=== PATIENT | male | born 1965 | race Caucasian/White ===

== ENCOUNTER 2021-10-25 09:20 | Inpatient (IN) ==
--- NOTE | 2021-10-25 10:01 | XRay Report ---
INDICATION: sob TECHNIQUE: AP portable upright chest x-ray COMPARISON: Previous chest x-ray dated 10/21/2021 FINDINGS: Lungs:Bilateral pulmonary parenchymal infiltrates consistent with pneumonia. Findings are suggestive of covid pneumonia and correlation with lab tests is recommended. There has been significant interval worsening of bilateral infiltrates since 10/21/2021. Heart, vascular:No significant cardiomegaly. Pulmonary vascularity is normal. No pulmonary edema or pulmonary congestion Mediastinum, renea:No mediastinal widening. No hilar mass Pleura:No pleural fluid. No pleural-based mass or calcification Skeletal:Negative. IMPRESSION: 1. Bilateral pulmonary parenchymal infiltrates, worse than on 10/21/2021 2. Findings are consistent with covid pneumonia Interpreted and Authenticated by: Ted Morelos 10/25/21
[2021-10-25 10:09] LABS: Basophils # (Auto) 0.03 K/mcL (0.00-0.30); Basophils % (Auto) 0.3 % (0.0-2.0); Eosinophils # (Auto) 0 K/mcL (0.00-0.70); Eosinophils % (Auto) 0 % (0.0-7.0); Hematocrit 47.4 % (40.1-51.0); Hemoglobin 16.1 g/dL (13.7-17.5); Lymphocytes # (Auto) 0.63 K/mcL (1.50-4.80); Lymphocytes % (Auto) 6.2 % (15.5-49.0); Mean Cell Volume 85.6 fL (80.0-100.0); Mean Platelet Volume 9.8 fL (7.4-10.4); Monocytes # (Auto) 0.43 K/mcL (0.10-0.90); Monocytes % (Auto) 4.3 % (1.0-12.0); Neutrophils % (Auto) 89.2 % (38.0-78.0); Platelet Count 233 K/mcL (140-440); RBC 5.54 M/mcL (4.63-6.08); Red Cell Distribution Width 14.6 % (11.5-14.5); WBC 10.1 K/mcL (4.5-11.0)
[2021-10-25] MEDS ORDERED: REMDESIVIR 200 MG in 0.9 % SODIUM CHLORIDE 250 ML IV ONE (10:16)
--- NOTE | 2021-10-25 10:35 | Internal Med History&Physical ---
HPI History of Present Illness Patient information: Note initiated : 10/25/21 at 10:32 am Service Date, if different from initiated Date: [] Patient: Demarcus Koch a 56 y/o M admitted on for hypoxia. Chief Complaint: [] History of present illness: Mr. Koch is a 56 year old M morbidly obese unvaccinated for Covid with a history of diabetes/hypertension/[place] patient who presents to the ER with worsening shortness of breath along with weakness. Patient was recently diagnosed on with Covid and was discharged on home oxygen/steroids. His symptoms started roughly around 13 October. Symptoms during fever, chills, malaise, fatigue, nonproductive cough weakness and fatigue. He also has associated loss of appetite. Initial work-up in the ER was consistent with severe hypoxia respiratory failure/bilateral chest infiltrates consistent with Covid pneumonia. Patient was started on nonrebreather oxygen. Initial blood gas 7.4/ on 100 percent FiO2 nonrebreather. Patient was started on remdesivir. Subsequently hospitalist service consulted At the time of my evaluation patient is extremely anxious, labored. He was able to talk in near full sentences but visibly short of breath requiring high flow oxygen to maintain sats above 90. He was able to endorse to history as above. He has associated diarrhea. He has been taking his steroids/home oxygen however his sats has been dropping to as low as 60s. He otherwise denies changes in medication, photophobia, joint pain, rash, glandular swelling Review of systems 10 point review system was performed and is negative except for ones discussed above PFSH PFSH All Active Problems COVID-19 (Acute) MEDS/ALLERGIES Home Medications and Allergies Allergies Allergy/AdvReac Type Severity Reaction Status Date / Time No Known Drug Allergies Allergy Verified 10/25/21 09:22 EXAM Constitutional Vitals: Pulse Resp Pulse Ox 99 H 16 89 L 10/25/21 10:13 10/25/21 10:13 10/25/21 10:13 Morbidly obese, anxious Head normocephalic Oral cavity moist No ear or nose discharge Eye no subconjunctival pallor, movement symmetrical S1-S2 occasionally irregular, tachycardia Labored breathing unable to talk in full sentences, on 100% FiO2 nonrebreather transition to high flow 30 L Vapotherm at 100% Nondistended nontender abdomen Lower extremity no cyanosis clubbing no lymphedema Skin stasis changes lower extremity Psych anxious but no hallucination Neuro normal higher function on limited neuro exam DATA Data Completed and Pending Labs: Labs from last 24 hours 10/25/21 09:40 WBC 10.1 RBC 5.54 Hgb 16.1 Hct 47.4 MCV 85.6 MCH 29.1 MCHC 34.0 RDW 14.6 H Plt Count 233 MPV 9.8 Neut % (Auto) 89.2 H Lymph % (Auto) 6.2 L [place] % (Auto) 4.3 Eos % (Auto) 0 Baso % (Auto) 0.3 Lymph # (Auto) 0.63 L [place] # (Auto) 0.43 Eos # (Auto) 0 Baso # (Auto) 0.03 Absolute Neutrophils 9.02 H A/P Narrative A/P Narrative: * COVID-19 pneumonia-PCU admission/initiate remdesivir/dexamethasone, Actemra if patient consents. Thrombosis prophylaxis/initial inflammatory markers, maintain COVID-19 precautions. * Acute hypoxic respiratory failure secondary to Covid pneumonia. Continue with high flow oxygen/pulmonary toilet/ Prone ventilation and transition to noninvasive mechanical ventilation if worsening oxygenation on ABG/interval chest imaging. ABG 7.4//56 on 100% nonrebreather * Acute lung injury, PF less than 100, high risk mortality. Initiate gentle diuresis for alveolar recruitment. Very high risk of progression to fibroproliferative phase/ARDS * DM type II-continue basal panel insulin/CC diet * History of hypertension hold antihypertensives until systolics over 140 * Orbit obesity. Very high risk mortality. Patient made aware Plan * Inpatient PCU admission, patient made aware of very high risk mortality * Continue high flow/NIV if indicated * Prone ventilation * Obtain medication list from pharmacy * Serial imaging/ABG * Remdesivir/dexamethasone/empiric antibiotics/Actemra if patient consents * Nutrition support/early mobilization Time Spent With Patient Time: Critical care time spent in excess of 100 minutes on management of respiratoryfailure/COVID-19 pneumonia Total time spent with greater than 50% in coordination of care (as documented) at patient's floor/unit and/or counseling patient:: Greater than 35 minutes
--- NOTE | 2021-10-25 10:59 | Emergency Department Note ---
HPI General Chief complaint: Shortness of Breath/Dyspnea Stated complaint: hypoxia Time Seen by Provider: 10/25/21 09:21 Source: patient Mode of arrival: ambulatory Limitations: no limitations History of Present Illness HPI Narrative: Narrative: Presents emergency department for increased difficulty breathing. He is about 7 days symptomatic with COVID-19. Complains of increased shortness of breath had a low oxygen saturation at home today in the 60s. Was seen in the emergency department recently for the same declined admission was discharged home on oxygen. Has been taking Decadron. Has a little chest discomfort with coughing but otherwise denies chest pain. No other complaints. Unvaccinated Related Data Allergies Allergy/AdvReac Type Severity Reaction Status Date / Time No Known Drug Allergies Allergy Verified 10/25/21 11:58 Review of Systems ROS ROS Narrative: Narrative: As above, all other system reviewed and negative. PFSH Narrative Patient History Narrative: Narrative: Reviewed Medical/Surgical/Family History All Active Problems (Updated 10/25/21 @ 13:32 by Tyrese Olvera MD) COVID-19 (Acute) Social History Smoking Status: Smokeless tobacco Exam Narrative Narrative: Narrative: Hypoxic on arrival to the emergency department General Limitations: no limitations General appearance: Present alert Head Head: Present atraumatic, normocephalic and normal inspection Eye Eye: Present normal appearance, PERRL and EOMI ENT ENT: Present normal exam Neck Neck: Present normal inspection and full ROM Respiratory Respiratory: Present other (Hypoxic but does not appear in respiratory dis tress.) Neurological Neurological: Present alert and CN II-XII intact; Absent motor sensory deficit Psychiatric Psychiatric: Present normal affect and normal mood Skin Skin: Present warm (WNL) and dry Course Vital Signs Vital signs: Vital Signs Pulse Rate 102 H 10/25/21 09:20 Respiratory Rate 25 H 10/25/21 09:20 Pulse Oximetry (%) 56 L 10/25/21 09:20 Temperature 97.5 F 10/25/21 12:01 Pulse Rate 91 H 10/25/21 12:01 Respiratory Rate 14 10/25/21 12:01 Blood Pressure 128/78 10/25/21 12:01 Pulse Oximetry (%) 91 10/25/21 12:01 [facility] MDM Narrative Medical decision making narrative: Narrative: Chest x-ray is consistent with Covid. Patient is placed on BiPAP initially and then transitioned to high flow oxygen and did improve with this and on reexam reports symptomatic improvement and is sitting upright and texting on his cell phone. I spoke with Dr. Wiggins on-call hospitalist. Case reviewed in detail over phone. Hospitalist agreed with admission. Discussed findings with the patient. His questions were answered. He is agreeable with plan. Lab Data Result diagrams: 10/25/21 09:40 10/25/21 13:11 Labs: Lab Results 10/25/21 10/25/21 10/25/21 Range/Units 09:40 09:40 09:40 WBC 10.1 (4.5-11.0) K/mcL RBC 5.54 (4.63-6.08) M/mcL Hgb 16.1 (13.7-17.5) g/dL Hct 47.4 (40.1-51.0) % MCV 85.6 (80.0-100.0) fL MCH 29.1 (26.0-34.0) pg MCHC 34.0 (31.0-36.0) g/dL RDW 14.6 H (11.5-14.5) % Plt Count 233 (140-440) K/mcL MPV 9.8 (7.4-10.4) fL Neut % (Auto) 89.2 H (38.0-78.0) % Lymph % (Auto) 6.2 L (15.5-49.0) % [place] % (Auto) 4.3 (1.0-12.0) % Eos % (Auto) 0 (0.0-7.0) % Baso % (Auto) 0.3 (0.0-2.0) % Lymph # (Auto) 0.63 L (1.50-4.80) K/mcL [place] # (Auto) 0.43 (0.10-0.90) K/mcL Eos # (Auto) 0 (0.00-0.70) K/mcL Baso # (Auto) 0.03 (0.00-0.30) K/mcL Absolute Neutrophils 9.02 H (1.80-8.00) K/mcL Ferritin 1678.0 H (30.0-400.0) ng/mL Procalcitonin 0.16 H (<0.10) ng/mL Discharge Plan Patient/Caregiver Discharge Instructions Pt seen by ADOBE ARCHITECT/PA only: No Clinical Impression: COVID-19 Patient Disposition: Xfer As Inpt ([facility]) Discharge Date/Time: 10/25/21 11:34
[2021-10-25] MEDS ORDERED: ONDANSETRON 4 MG/2 ML VIAL IV PRN (12:08)
[2021-10-25] MEDS ORDERED: ALBUTEROL SULFATE 200 PUFF INHALER INH PRN (12:08)
[2021-10-25] MEDS ORDERED: BISACODYL 10 MG SUPP.RECT PR PRN (12:08)
[2021-10-25] MEDS ORDERED: POLYETHYLENE GLYCOL 3350 17 GM PACKET PO PRN (12:08)
[2021-10-25] MEDS ORDERED: ACETAMINOPHEN 325 MG TABLET PO PRN (12:08)
[2021-10-25] MEDS ORDERED: POTASSIUM CHLORIDE 20 MEQ PACKET PO PRN (12:08)
[2021-10-25] MEDS ORDERED: hydrALAZINE 20 MG/ML VIAL IV PRN (12:08)
[2021-10-25] MEDS ORDERED: ONDANSETRON 4 MG ODT TABLET SL PRN (12:08)
[2021-10-25] MEDS ORDERED: MAGNESIUM SULFATE 2 GM/50 ML BAG IV PRN (12:08)
[2021-10-25] MEDS ORDERED: MELATONIN 3 MG TABLET PO PRN (12:08)
[2021-10-25] MEDS: guaiFENesin/CODEINE 10 ML UDC PO PRN (12:40)
[2021-10-25] MEDS: FUROSEMIDE 20 MG/2 ML VIAL IV SCH ×2 (12:40→16:47)
[2021-10-25] MEDS: cefTRIAXone 2 GM in DEXTROSE 5% IN WATER 50 ML IV SCH (12:41)
[2021-10-25] MEDS: AZITHROMYCIN 500 MG in DEXTROSE 5% IN WATER 250 ML IV SCH (12:41)
--- NOTE | 2021-10-25 13:11 | Internal Med Progress Note ---
SUBJECTIVE Subjective Patient information: Note initiated : 10/25/21 at 1:07 pm Service Date, if different from initiated Date: [] Patient: Demarcus Koch a 56 y/o M admitted on 10/25/21 for hypoxia. Chief Complaint: [] Interval history: History of present illness: Mr. Koch is a 56 year old M morbidly obese unvaccinated for Covid with a history of diabetes/hypertension/[facility] patient who presents to the ER with worsening shortness of breath along with weakness. Patient was recently diagnosed on with Covid and was discharged on home oxygen/steroids. His symptoms started roughly around 13 October. Symptoms during fever, chills, malaise, fatigue, nonproductive cough weakness and fatigue. He also has associated loss of appetite. Initial work-up in the ER was consistent with severe hypoxia respiratory failure/bilateral chest infiltrates consistent with Covid pneumonia. Patient was started on nonrebreather oxygen. Initial blood gas 7.4/ on 100 percent FiO2 nonrebreather. Patient was started on remdesivir. Subsequently hospitalist service consulted At the time of my evaluation patient is extremely anxious, labored. He was able to talk in near full sentences but visibly short of breath requiring high flow oxygen to maintain sats above 90. He was able to endorse to history as above. He has associated diarrhea. He has been taking his steroids/home oxygen however his sats has been dropping to as low as 60s. He otherwise denies changes in medication, photophobia, joint pain, rash, glandular swelling 10/26 Constitutional Vitals: Vital Signs Temp Pulse Resp BP Pulse Ox 97.5 F 91 H 14 128/78 91 10/25/21 12:01 10/25/21 12:01 10/25/21 12:01 10/25/21 12:01 10/25/21 12:01 Period Temp Pulse Resp BP Sys/Saez Pulse Ox Last 24 Hr 97.5 F-99.7 F 79-102 13-29 112-146/58-80 56-95 Intake and Output 10/24/21 10/25/21 10/25/21 21:59 05:59 13:59 Intake Total 250 Balance 250 Weight 156.489 kg Patient Weight 10/26/21 05:59 Weight 156.489 kg Intake & Output: Intake & Output 10/24/21 10/25/2121 21:59 05:59 13:59 Intake Total 250 Balance 250 Weight 156.489 kg Intake: IV 250 Veklury 200 mg In Sodium 250 Chloride 0.9% 250 ml @ 500 mls/ hr IV ONCE ONE Rx#:[id number] Exam: General: Alert, Awake, No acute Distress, obese Eyes/N/T: EOMI, Head/Neck: neck supple, CV: RRR, No murmurs, Pulm: Abd: soft, nontender, +BS x4 Ext: no clubbing/cyanosis/edema Neuro: Alert, no focal deficits, moves all extremities, Skin: warm/dry OBJ DATA Labs CBC & Chem 7: 10/25/21 09:40 10/25/21 13:11 Labs: Abnormal Lab Results 10/25/21 10/25/21 10/25/21 09:40 09:40 09:40 RDW 14.6 H Neut % (Auto) 89.2 H Lymph % (Auto) 6.2 L Lymph # (Auto) 0.63 L Absolute Neutrophils 9.02 H Ferritin 1678.0 H Procalcitonin 0.16 H Meds: Medications Acetaminophen (Acetaminophen 325 Mg Tablet) 650 mg PO Q4-6HP PRN; Protocol PRN Reason: Per Pain Protocol/Fever > 101 Albuterol Sulfate (Albuterol Sulfate 200 Puff Inhaler) 1 - 2 puff INH Q4HP PRN PRN Reason: Shortness Of Breath Bisacodyl (Bisacodyl 10 Mg Supp.Rect) 10 mg TX Q2-3DAYS PRN PRN Reason: Constipation Docusate Sodium (Docusate Sodium 100 Mg Capsule) 100 mg PO BID [facility] Enoxaparin Sodium (Enoxaparin 30 Mg/0.3 Ml Syringe) 30 mg SQ BID [facility]ENN[facility] Furosemide (Furosemide 20 Mg/2 Ml Vial) 20 mg IV BIDD JENN[facility]ER Last Admin: 10/25/21 12:40 Dose: 20 mg Documented by: Guaifenesin/Codeine Phosphate (Guaifenesin/Codeine 10 Ml Udc) 10 ml PO Q4HP PRN PRN Reason: Cough Last Admin: 10/25/21 12:40 Dose: 10 ml Documented by: Hydralazine HCl (Hydralazine 20 Mg/Ml Vial) 10 mg IV Q4-6HP PRN PRN Reason: Hypertension Azithromycin 500 mg/ Dextrose 250 mls @ 250 mls/hr IV Q24H [facility]; Protocol Stop: 10/27/21 13:59 Last Admin: 10/25/21 12:41 Dose: 250 mls/hr Documented by: REMDESIVIR 100 mg/ Sodium (Chloride) 250 mls @ 500 mls/hr IV Q24H [facility] Stop: 10/29/21 10:29 Acetaminophen (Ofirmev) 650 mg in 65 mls @ 130 mls/hr IV Q6HP PRN; Protocol PRN Reason: Per Pain Protocol/Fever > 101 Magnesium Sulfate (Magnesium Sulfate) 2 gm in 50 mls @ 50 mls/hr IV UD PRN PRN Reason: MG = or < 1.7 Ceftriaxone Sodium 2 gm/ (Dextrose) 50 mls @ 100 mls/hr IV Q24H [facility]; Protocol Last Admin: 10/25/21 12:41 Dose: 100 mls/hr Documented by: Iron Carb/Multivit/[place]/Folic Acid (Multivit,Ther Iron,Ca,Fa & Min 1 Tablet) 1 tab PO DAILY [facility] Melatonin (Melatonin 3 Mg Tablet) 3 mg PO HSP PRN PRN Reason: Insomnia Ondansetron HCl (Ondansetron 4 Mg Odt Tablet) 4 mg SL Q4-6HP PRN; Protocol PRN Reason: Nausea And Vomiting Ondansetron HCl (Ondansetron 4 Mg/2 Ml Vial) 4 mg IV Q4-6HP PRN; Protocol PRN Reason: Nausea And Vomiting Polyethylene Glycol (Polyethylene Glycol 3350 17 Gm Packet) 17 gm PO DAILYP PRN PRN Reason: Constipation Potassium Chloride (Potassium Chloride 20 Meq Packet) 40 meq PO DAILYP PRN PRN Reason: K+ < 3.5 Senna/Docusate Sodium (Sennosides/Docusate Sodium 1 Tab Tablet) 1 tab PO HS [facility]ENN[facility] Sodium Chloride (0.9 % Sodium Chloride 10 Ml Syringe) 10 ml IV Q8 [facility]ENN[facility]ER A/P Narrative A/P Narrative: A: *COVID-19 pneumonia w/ARDS: *Acute hypoxic respiratory failure: *DM type II: *HTN: *GERD: *Morbid obesity: Very high risk mortality. Plan: -patient made aware of very high risk mortality -Remdesivir/dexamethasone/empiric antibiotics, Actemra -Continue high flow/NIV if indicated -Proning/mobilization/oob to chair -IS/Acapella/RT -IV lasix -continue basal and SSI -Serial imaging/ABG -cont norvasc/ACEI/BB -Nutrition support/early mobilization -ppx: lovenox / home ppi full code Time Spent With Patient Time: Total time spent is greater than 50% in coordination of care (as documented) at patient's floor/unit and/or counseling patient:
[2021-10-25] MEDS ORDERED: TOCILIZUMAB 800 MG in 0.9 % SODIUM CHLORIDE 60 ML IV ONE (13:30)
[2021-10-25 14:29] LABS: ALT/SGPT 34 U/L (<40); AST/SGOT 44 U/L (<40); Albumin 3.4 gm/dL (3.2-5.2); Albumin/Globulin Ratio 0.9 (1.0-2.3); Alkaline Phosphatase 103 U/L (39-117); Bilirubin,Direct < 0.2 mg/dL (0-0.3); Bilirubin,Total 0.3 mg/dL (0.1-1.0); Blood Urea Nitrogen 28 mg/dL (6-20); Carbon Dioxide 20 mmol/L (22-30); Chloride 98 mmol/L (96-108); Globulin 3.6 gm/dL (2.2-3.7); Glomerular Filtration Rate 95; Glucose 194 mg/dL (70-105); Lactate Dehydrogenase 602 U/L (135-225); Phosphorous 3.4 mg/dL (2.5-4.5); Triglycerides 193 mg/dL (<150); Uric Acid 6.1 mg/dL (2.5-8.0)
[2021-10-25] MEDS: 0.9 % SODIUM CHLORIDE 10 ML SYRINGE IV SCH ×2 (14:51→20:15)
[2021-10-25] MEDS ORDERED: DEXTROSE 50% 50 ML VIAL IV PRN (17:31)
[2021-10-25] MEDS ORDERED: DEXTROSE 31 GM ORAL.SUSP PO PRN (17:31)
[2021-10-25] MEDS ORDERED: NICOTINE POLACRILEX 2 MG GUM CHEW/PARK PRN (17:42)
[2021-10-25] MEDS: DOCUSATE SODIUM 100 MG CAPSULE PO SCH (20:09)
[2021-10-25] MEDS: SENNOSIDES/DOCUSATE SODIUM 1 TAB TABLET PO SCH (20:09)
[2021-10-25] MEDS: INSULIN LISPRO 1 UNIT/0.01 ML UNIT SQ SCH (20:14)
[2021-10-25] MEDS: ATORVASTATIN 40 MG TABLET PO SCH (20:15)
[2021-10-25] MEDS: METOPROLOL TARTRATE 50 MG TABLET PO SCH (20:15)
[2021-10-25] MEDS: ENOXAPARIN 30 MG/0.3 ML SYRINGE SQ SCH (20:15)
[2021-10-26] MEDS: guaiFENesin/CODEINE 10 ML UDC PO PRN ×4 (02:12→21:37)
[2021-10-26] MEDS: 0.9 % SODIUM CHLORIDE 10 ML SYRINGE IV SCH ×3 (05:37→21:51)
[2021-10-26] MEDS: OMEPRAZOLE 20 MG CAPSULE PO SCH (07:09)
--- NOTE | 2021-10-26 07:28 | Internal Med Progress Note ---
SUBJECTIVE Subjective Patient information: Note initiated : 10/26/21 at 7:28 am Service Date, if different from initiated Date: [] Patient: Demarcus Koch 56 y/o M admitted on 10/25/21 for hypoxia. Chief Complaint: [] Interval history: History of present illness: Mr. Koch is a 56 year old M morbidly obese unvaccinated for Covid with a history of diabetes/hypertension/[facility] patient who presents to the ER with worsening shortness of breath along with weakness. Patient was recently diagnosed on with Covid and was discharged on home oxygen/steroids. His symptoms started roughly around 13 October. Symptoms during fever, chills, malaise, fatigue, nonproductive cough weakness and fatigue. He also has associated loss of appetite. Initial work-up in the ER was consistent with severe hypoxia respiratory failure/bilateral chest infiltrates consistent with Covid pneumonia. Patient was started on nonrebreather oxygen. Initial blood gas 7.4/ on 100 percent FiO2 nonrebreather. Patient was started on remdesivir. Subsequently hospitalist service consulted At the time of my evaluation patient is extremely anxious, labored. He was able to talk in near full sentences but visibly short of breath requiring high flow oxygen to maintain sats above 90. He was able to endorse to history as above. He has associated diarrhea. He has been taking his steroids/home oxygen however his sats has been dropping to as low as 60s. He otherwise denies changes in medication, photophobia, joint pain, rash, glandular swelling 10/26 Patient not vaccinated. Patient feels he may be breathing a little better than yesterday. States he slept all right. Currently on CPAP at 100% FiO2 with sats low 90s. Dry cough. Review of Systems: denies headache/fever/chills/nausea/vomiting/chest or abdominal pain/diarrhea. Otherwise see above. Constitutional Vitals: Vital Signs Temp Pulse Resp BP Pulse Ox 96.5 F L 70 25 H 108/75 91 10/26/21 04:00 10/26/21 05:35 10/26/21 05:35 10/26/21 04:00 10/26/21 05:35 Period Temp Pulse Resp BP Sys/Saez Pulse Ox Last 24 Hr 96.5 F-99.7 F 59-102 8-32 99-146/41-81 56-99 Intake and Output 10/25/21 10/26/21 10/26/21 21:59 05:59 13:59 Intake Total 1920 1080 Output Total 3500 1450 Balance -1580 -370 Weight 142.11 kg Intake & Output: Intake & Output 10/25/21 10/26/21 10/26/21 21:59 05:59 13:59 Intake Total 1920 1080 Output Total 3500 1450 Balance -1580 -370 Weight 142.11 kg Intake: IV 400 Zithromax 500 mg In Dextrose 5% 250 in Water 250 ml @ 250 mls/hr IV Q24H [facility] Rx#:[id number] Actemra 800 mg In Sodium 100 Chloride 0.9% 60 ml @ 100 mls/ hr IV ONCE ONE Rx#:[id number] Rocephin 2 gm In Dextrose 5% in 50 Water 50 ml @ 100 mls/hr IV Q24H [facility] Rx#:[id number] Oral 1520 1080 Output: Void Amount 3500 1450 Other: Meal Dinner Percent of Meal Consumed 50% Feeding Ability Independent Urine Appearance Clear Clear Urine Color Bright Yellow Bright Yellow Urine Odor Normal Stool Size Small Stool Color Brown Stool Consistency Liquid # Bowel Movements 1 Exam: General: Alert, Awake, No acute Distress, obese Eyes/N/T: EOMI, Head/Neck: neck supple, CV: RRR, No murmurs, Pulm: Diminished and fine rales b/l, no wheezing Abd: soft, nontender, +BS x4 Ext: no clubbing/cyanosis, Neuro: Alert, no focal deficits, moves all extremities, Skin: warm/dry OBJ DATA Labs CBC & Chem 7: 10/25/21 09:40 10/25/21 13:11 Labs: Abnormal Lab Results 10/25/21 10/25/21 10/25/21 13:11 13:11 09:40 RDW Neut % (Auto) Lymph % (Auto) Lymph # (Auto) Absolute Neutrophils D-Dimer 1.25 H Carbon Dioxide 20 L BUN 28 H Glucose 194 H Magnesium 2.7 H Ferritin GGT 103 H AST 44 H Lactate Dehydrogenase 602 H C-Reactive Protein 6.50 H Albumin/Globulin Ratio 0.9 L Triglycerides 193 H Procalcitonin 0.16 H 10/25/21 10/25/21 09:40 09:40 RDW 14.6 H Neut % (Auto) 89.2 H Lymph % (Auto) 6.2 L Lymph # (Auto) 0.63 L Absolute Neutrophils 9.02 H D-Dimer Carbon Dioxide BUN Glucose Magnesium Ferritin 1678.0 H GGT AST Lactate Dehydrogenase C-Reactive Protein Albumin/Globulin Ratio Triglycerides Procalcitonin Meds: Medications Acetaminophen (Acetaminophen 325 Mg Tablet) 650 mg PO Q4-6HP PRN; Protocol PRN Reason: Per Pain Protocol/Fever > 101 Albuterol Sulfate (Albuterol Sulfate 200 Puff Inhaler) 1 - 2 puff INH Q4HP PRN PRN Reason: Shortness Of Breath Albuterol/Ipratropium (Ipratropium/Albuterol 3 Ml Ampul.Neb) 3 ml NEB Q4HP PRN PRN Reason: Shortness Of Breath Amlodipine Besylate (Amlodipine 10 Mg Tablet) 10 mg PO DAILY [facility] Aspirin (Aspirin 81 Mg Tab.Chew) 81 mg PO DAILY [facility] Atorvastatin Calcium (Atorvastatin 40 Mg Tablet) 40 mg PO HS [facility] Last Admin: 10/25/21 20:15 Dose: 40 mg Documented by: Bisacodyl (Bisacodyl 10 Mg Supp.Rect) 10 mg MS Q2-3DAYS PRN PRN Reason: Constipation Dextrose (Dextrose 50% 50 Ml Vial) 0 ml IV UD PRN PRN Reason: Hypoglycemia Diagnostic Test (Pha) (Accu-Chek 1 Each Strip) 1 each FS ACHS [facility] Last Admin: 10/25/21 20:14 Dose: 1 each Documented by: Docusate Sodium (Docusate Sodium 100 Mg Capsule) 100 mg PO BID [facility] Last Admin: 10/25/21 20:09 Dose: Not Given Documented by: Enoxaparin Sodium (Enoxaparin 30 Mg/0.3 Ml Syringe) 30 mg SQ BID [facility] Last Admin: 10/25/21 20:15 Dose: 30 mg Documented by: Furosemide (Furosemide 20 Mg/2 Ml Vial) 20 mg IV BIDD [facility] Last Admin: 10/25/21 16:47 Dose: 20 mg Documented by: Glucose (Dextrose 31 Gm Oral.Susp) 15 gm PO PRN PRN PRN Reason: Hypoglycemia Guaifenesin/Codeine Phosphate (Guaifenesin/Codeine 10 Ml Udc) 10 ml PO Q4HP PRN PRN Reason: Cough Last Admin: 10/26/21 02:12 Dose: 10 ml Documented by: Hydralazine HCl (Hydralazine 20 Mg/Ml Vial) 10 mg IV Q4-6HP PRN PRN Reason: Hypertension Azithromycin 500 mg/ Dextrose 250 mls @ 250 mls/hr IV Q24H [facility]; Protocol Stop: 10/27/21 13:59 Last Infusion: 10/25/21 15:07 Dose: Infused Documented by: REMDESIVIR 100 mg/ Sodium (Chloride) 250 mls @ 500 mls/hr IV Q24H [facility] Stop: 10/29/21 10:29 Acetaminophen (Ofirmev) 650 mg in 65 mls @ 130 mls/hr IV Q6HP PRN; Protocol PRN Reason: Per Pain Protocol/Fever > 101 Magnesium Sulfate (Magnesium Sulfate) 2 gm in 50 mls @ 50 mls/hr IV UD PRN PRN Reason: MG = or < 1.7 Ceftriaxone Sodium 2 gm/ (Dextrose) 50 mls @ 100 mls/hr IV Q24H [facility]; Protocol Last Infusion: 10/25/21 15:07 Dose: Infused Documented by: Insulin Glargine (Insulin Glargine, Human 1 Unit/0.01 Ml) 60 unit SQ DAILY [facility] Insulin Human Lispro (Insulin Lispro 1 Unit/0.01 Ml Unit) 0 unit SQ ACHS [facility]; Protocol Last Admin: 10/25/21 20:14 Dose: 8 unit Documented by: Iron Carb/Multivit/Sammy [place]/Folic Acid (Multivit,Ther Iron,Ca,Fa & Min 1 Tablet) 1 tab PO DAILY [facility] Lisinopril (Lisinopril 20 Mg Tablet) 40 mg PO DAILY [facility] Melatonin (Melatonin 3 Mg Tablet) 3 mg PO HSP PRN PRN Reason: Insomnia Metoprolol Tartrate (Metoprolol Tartrate 50 Mg Tablet) 100 mg PO BID [facility] Last Admin: 10/25/21 20:15 Dose: 100 mg Documented by: Nicotine Polacrilex (Nicotine Polacrilex 2 Mg Gum) 4 mg CHEW/PARK Q1-2HP PRN PRN Reason: Smoking Cessation Omeprazole (Omeprazole 20 Mg Capsule) 40 mg PO ACB [facility] Last Admin: 10/26/21 07:09 Dose: 40 mg Documented by: Ondansetron HCl (Ondansetron 4 Mg Odt Tablet) 4 mg SL Q4-6HP PRN; Protocol PRN Reason: Nausea And Vomiting Ondansetron HCl (Ondansetron 4 Mg/2 Ml Vial) 4 mg IV Q4-6HP PRN; Protocol PRN Reason: Nausea And Vomiting Empagliflozin [ (Jardiance] 25 Mg Tab) 1 dose PO DAILY [facility] Polyethylene Glycol (Polyethylene Glycol 3350 17 Gm Packet) 17 gm PO DAILYP PRN PRN Reason: Constipation Potassium Chloride (Potassium Chloride 20 Meq Packet) 40 meq PO DAILYP PRN PRN Reason: K+ < 3.5 Senna/Docusate Sodium (Sennosides/Docusate Sodium 1 Tab Tablet) 1 tab PO HS [facility] Last Admin: 10/25/21 20:09 Dose: Not Given Documented by: Sodium Chloride (0.9 % Sodium Chloride 10 Ml Syringe) 10 ml IV Q8 [facility] Last Admin: 10/26/21 05:37 Dose: 10 ml Documented by: A/P Narrative A/P Narrative: A: *COVID-19 pneumonia w/ARDS: *Acute hypoxic respiratory failure: -on cpap fio2 90-100% *DM type II: *HTN: *GERD: *Morbid obesity: Very high risk mortality Plan: -patient made aware of very high risk mortality -Remdesivir/dexamethasone/empiric antibiotics, s/p Actemra -Continue cpap, wean as able -Proning/mobilization/oob to chair -IS/Acapella/RT -IV lasix -continue basal and SSI -cont ACEI, hold norvasc/BB for low normal BP and mild bradycardia -Nutrition support/early mobilization -ppx: lovenox / home ppi full code Time Spent With Patient Time: Total time spent is greater than 50% in coordination of care (as documented) at patient's floor/unit and/or counseling patient: QUALITY VTE Deep Vein Thrombosis/Pulmonary Embolism Present on Admission: No
[2021-10-26] MEDS: INSULIN LISPRO 1 UNIT/0.01 ML UNIT SQ SCH ×4 (07:36→21:49)
[2021-10-26] MEDS: cefTRIAXone 2 GM in DEXTROSE 5% IN WATER 50 ML IV SCH (08:11)
[2021-10-26] MEDS: LORazepam 2 MG/ML VIAL IV PRN ×3 (08:11→23:29)
[2021-10-26] MEDS: FUROSEMIDE 20 MG/2 ML VIAL IV SCH ×2 (08:11→16:07)
[2021-10-26] MEDS: ACETAMINOPHEN 650 MG/65 ML BAG IV PRN ×3 (08:14→23:30)
[2021-10-26] MEDS ORDERED: LIDOCAINE 2% URO-JET 5 ML JEL.PF.APP UR ONE (08:15)
[2021-10-26] MEDS ORDERED: LISINOPRIL 20 MG TABLET PO SCH (09:00)
[2021-10-26] MEDS ORDERED: amLODIPine 10 MG TABLET PO SCH (09:00)
[2021-10-26] MEDS: AZITHROMYCIN 500 MG in DEXTROSE 5% IN WATER 250 ML IV SCH (09:47)
[2021-10-26] MEDS: MULTIVIT,THER IRON,CA,FA & MIN 1 TABLET PO SCH (09:48)
[2021-10-26] MEDS: ENOXAPARIN 30 MG/0.3 ML SYRINGE SQ SCH ×2 (09:48→21:36)
[2021-10-26] MEDS: DOCUSATE SODIUM 100 MG CAPSULE PO SCH ×2 (09:48→21:34)
[2021-10-26] MEDS: INSULIN GLARGINE, HUMAN 1 UNIT/0.01 ML SQ SCH (09:48)
[2021-10-26] MEDS: ASPIRIN 81 MG TAB.CHEW PO SCH (09:48)
[2021-10-26] MEDS: LIDOCAINE PATCH TOPICAL SCH (10:00)
[2021-10-26] MEDS: METOPROLOL TARTRATE 50 MG TABLET PO SCH (11:27)
[2021-10-26 12:03] LABS: Basophils # (Auto) 0.09 K/mcL (0.00-0.30); Eosinophils # (Auto) 0.22 K/mcL (0.00-0.70); Eosinophils % (Auto) 2.5 % (0.0-7.0); Hematocrit 49.1 % (40.1-51.0); Hemoglobin 16.1 g/dL (13.7-17.5); Lymphocytes # (Auto) 0.95 K/mcL (1.50-4.80); Lymphocytes % (Auto) 10.9 % (15.5-49.0); Mean Cell Volume 88.5 fL (80.0-100.0); Mean Corpuscular HGB Conc 32.8 g/dL (31.0-36.0); Mean Platelet Volume 10.9 fL (7.4-10.4); Monocytes # (Auto) 0.41 K/mcL (0.10-0.90); Monocytes % (Auto) 4.7 % (1.0-12.0); Neutrophils % (Auto) 80.9 % (38.0-78.0); Platelet Count 224 K/mcL (140-440); RBC 5.55 M/mcL (4.63-6.08); Red Cell Distribution Width 14.7 % (11.5-14.5)
[2021-10-26 12:10] LABS: ALT/SGPT 36 U/L (<40); AST/SGOT 44 U/L (<40); Albumin 3.3 gm/dL (3.2-5.2); Albumin/Globulin Ratio 0.9 (1.0-2.3); Alkaline Phosphatase 109 U/L (39-117); Bilirubin,Direct 0.2 mg/dL (<0.3); Bilirubin,Total 0.3 mg/dL (0.1-1.0); Blood Urea Nitrogen 27 mg/dL (6-20); Calcium 9.1 mg/dL (8.6-10.4); Carbon Dioxide 18 mmol/L (22-30); Chloride 101 mmol/L (96-108); Globulin 3.8 gm/dL (2.2-3.7); Glomerular Filtration Rate 100; Glucose 145 mg/dL (70-105); Lactate Dehydrogenase 612 U/L (135-225); Phosphorous 3.2 mg/dL (2.5-4.5); Triglycerides 163 mg/dL (<150); Uric Acid 7.1 mg/dL (2.5-8.0)
[2021-10-26] MEDS: REMDESIVIR 100 MG in 0.9 % SODIUM CHLORIDE 250 ML IV SCH (12:19)
[2021-10-26 13:23] LABS: WBC 8.7 K/mcL (4.5-11.0)
[2021-10-26 15:34] LABS: Blood Urea Nitrogen 29 mg/dL (6-20); Calcium 8.8 mg/dL (8.6-10.4); Carbon Dioxide 22 mmol/L (22-30); Chloride 102 mmol/L (96-108); Glomerular Filtration Rate 105; Glucose 139 mg/dL (70-105)
[2021-10-26] MEDS: TAMSULOSIN 0.4 MG CAPSULE PO SCH (21:35)
[2021-10-26] MEDS: SENNOSIDES/DOCUSATE SODIUM 1 TAB TABLET PO SCH (21:36)
[2021-10-26] MEDS: ATORVASTATIN 40 MG TABLET PO SCH (21:36)
[2021-10-27] MEDS: guaiFENesin/CODEINE 10 ML UDC PO PRN ×3 (01:20→13:22)
[2021-10-27] MEDS: ACETAMINOPHEN 650 MG/65 ML BAG IV PRN (05:13)
[2021-10-27] MEDS: LORazepam 2 MG/ML VIAL IV PRN ×4 (05:14→18:48)
[2021-10-27] MEDS: 0.9 % SODIUM CHLORIDE 10 ML SYRINGE IV SCH ×3 (05:36→22:26)
--- NOTE | 2021-10-27 06:52 | XRay Report ---
INDICATION: covid TECHNIQUE: AP portable semiupright chest x-ray COMPARISON: Previous chest x-rays dated 10/25/2021, 10/21/2021 FINDINGS: Lungs:Bilateral pulmonary parenchymal infiltrates consistent with severe covid pneumonia. No definite interval change since 10/25/2021 Heart, vascular:No significant cardiomegaly. Pulmonary vascularity is normal. No pulmonary edema or pulmonary congestion Mediastinum, renea:No mediastinal widening. No hilar mass Pleura:No pleural fluid. No pleural-based mass or calcification Skeletal:Negative. IMPRESSION: 1. Bilateral pulmonary parenchymal infiltrates consistent with severe covid pneumonia 2. No significant interval change from 10/25/2021 Interpreted and Authenticated by: Ted Morelos 10/27/21
[2021-10-27] MEDS: cefTRIAXone 2 GM in DEXTROSE 5% IN WATER 50 ML IV SCH (07:08)
[2021-10-27] MEDS: FUROSEMIDE 20 MG/2 ML VIAL IV SCH (07:08)
[2021-10-27] MEDS: INSULIN LISPRO 1 UNIT/0.01 ML UNIT SQ SCH ×4 (07:26→22:26)
[2021-10-27] MEDS: OMEPRAZOLE 20 MG CAPSULE PO SCH (07:28)
--- NOTE | 2021-10-27 07:47 | Internal Med Progress Note ---
SUBJECTIVE Subjective Patient information: Note initiated : 10/27/21 at 7:43 am Service Date, if different from initiated Date: [] Patient: Demarcus Koch 56 y/o M admitted on 10/25/21 for hypoxia. Chief Complaint: [] Interval history: History of present illness: Mr. Koch is a 56 year old M morbidly obese unvaccinated for Covid with a history of diabetes/hypertension/[facility] patient who presents to the ER with worsening shortness of breath along with weakness. Patient was recently diagnosed on with Covid and was discharged on home oxygen/steroids. His symptoms started roughly around 13 October. Symptoms during fever, chills, malaise, fatigue, nonproductive cough weakness and fatigue. He also has associated loss of appetite. Initial work-up in the ER was consistent with severe hypoxia respiratory failure/bilateral chest infiltrates consistent with Covid pneumonia. Patient was started on nonrebreather oxygen. Initial blood gas 7.4/ on 100 percent FiO2 nonrebreather. Patient was started on remdesivir. Subsequently hospitalist service consulted At the time of my evaluation patient is extremely anxious, labored. He was able to talk in near full sentences but visibly short of breath requiring high flow oxygen to maintain sats above 90. He was able to endorse to history as above. He has associated diarrhea. He has been taking his steroids/home oxygen however his sats has been dropping to as low as 60s. He otherwise denies changes in medication, photophobia, joint pain, rash, glandular swelling 10/26 Patient not vaccinated. Patient feels he may be breathing a little better than yesterday. States he slept all right. Currently on CPAP at 100% FiO2 with sats low 90s. Dry cough. 10/27 Feels about the same as yesterday. States he does not feel any worse. Required high oxygen last night seems to be doing better on his left side. Down to 60% on a BiPAP of 01/09. Review of Systems: denies headache/fever/chills/nausea/vomiting/chest or abdominal pain/diarrhea. Otherwise see above. Constitutional Vitals: Vital Signs Temp Pulse Resp BP Pulse Ox 97.9 F 80 16 104/68 95 10/27/21 06:01 10/27/21 07:07 10/27/21 07:07 10/27/21 06:01 10/27/21 07:07 Period Temp Pulse Resp BP Sys/Saez Pulse Ox Last 24 Hr 97.7 F-99.2 F 53-90 7-27 85-127/51-72 87-98 Intake and Output 10/26/21 10/27/21 10/27/21 21:59 05:59 13:59 Intake Total 65 850 Output Total 1670 690 Balance -1605 160 Weight 140.478 kg Intake & Output: Intake & Output 10/26/21 10/27/21 10/27/21 21:59 05:59 13:59 Intake Total 65 850 Output Total 1670 690 Balance -1605 160 Weight 140.478 kg Intake: IV 65 130 Oral 720 Output: Urine Catheter Amount 1670 690 Other: Urine Appearance Clear Clear Uretheral (Pugh) Clear Urine Color Bright Yellow Dark Yellow Uretheral (Pugh) Bright Yellow Urine Odor Normal Exam: General: Alert, Awake, No acute Distress, obese Eyes/N/T: EOMI, Head/Neck: neck supple, CV: RRR, No murmurs, Pulm: Severely diminished and fine rales b/l, no wheezing Abd: soft, nontender, +BS x4 Ext: no clubbing/cyanosis, Neuro: Alert, no focal deficits, moves all extremities, Skin: warm/dry OBJ DATA Labs CBC & Chem 7: 10/27/21 06:23 10/26/21 14:36 Labs: Abnormal Lab Results 10/26/21 10/26/21 10/26/21 14:36 05:45 05:44 RDW MPV Neut % (Auto) Lymph % (Auto) Lymph # (Auto) Absolute Neutrophils D-Dimer Carbon Dioxide 18 L BUN 29 H 27 H Glucose 139 H 145 H Magnesium 2.9 H Ferritin 1652.0 H GGT 104 H AST 44 H Lactate Dehydrogenase 612 H C-Reactive Protein Globulin 3.8 H Albumin/Globulin Ratio 0.9 L Triglycerides 163 H Procalcitonin 10/26/21 10/26/21 10/26/21 05:44 05:44 05:42 RDW 14.7 H MPV 10.9 H Neut % (Auto) 80.9 H Lymph % (Auto) 10.9 L Lymph # (Auto) 0.95 L Absolute Neutrophils D-Dimer 4.29 H Carbon Dioxide BUN Glucose Magnesium Ferritin GGT AST Lactate Dehydrogenase C-Reactive Protein 4.50 H Globulin Albumin/Globulin Ratio Triglycerides Procalcitonin 10/25/21 10/25/21 10/25/21 13:11 13:11 09:40 RDW MPV Neut % (Auto) Lymph % (Auto) Lymph # (Auto) Absolute Neutrophils D-Dimer 1.25 H Carbon Dioxide 20 L BUN 28 H Glucose 194 H Magnesium 2.7 H Ferritin GGT 103 H AST 44 H Lactate Dehydrogenase 602 H C-Reactive Protein 6.50 H Globulin Albumin/Globulin Ratio 0.9 L Triglycerides 193 H Procalcitonin 0.16 H 10/25/21 10/25/21 09:40 09:40 RDW 14.6 H MPV Neut % (Auto) 89.2 H Lymph % (Auto) 6.2 L Lymph # (Auto) 0.63 L Absolute Neutrophils 9.02 H D-Dimer Carbon Dioxide BUN Glucose Magnesium Ferritin 1678.0 H GGT AST Lactate Dehydrogenase C-Reactive Protein Globulin Albumin/Globulin Ratio Triglycerides Procalcitonin Meds: Medications Acetaminophen (Acetaminophen 325 Mg Tablet) 650 mg PO Q4-6HP PRN; Protocol PRN Reason: Per Pain Protocol/Fever > 101 Albuterol Sulfate (Albuterol Sulfate 200 Puff Inhaler) 1 - 2 puff INH Q4HP PRN PRN Reason: Shortness Of Breath Albuterol/Ipratropium (Ipratropium/Albuterol 3 Ml Ampul.Neb) 3 ml NEB Q4HP PRN PRN Reason: Shortness Of Breath Aspirin (Aspirin 81 Mg Tab.Chew) 81 mg PO DAILY [facility] Last Admin: 10/26/21 09:48 Dose: 81 mg Documented by: Atorvastatin Calcium (Atorvastatin 40 Mg Tablet) 40 mg PO HS [facility] Last Admin: 10/26/21 21:36 Dose: 40 mg Documented by: Bisacodyl (Bisacodyl 10 Mg Supp.Rect) 10 mg IN Q2-3DAYS PRN PRN Reason: Constipation Dextrose (Dextrose 50% 50 Ml Vial) 0 ml IV UD PRN PRN Reason: Hypoglycemia Diagnostic Test (Pha) (Accu-Chek 1 Each Strip) 1 each FS ACHS [facility] Last Admin: 10/27/21 07:26 Dose: 1 each Documented by: Docusate Sodium (Docusate Sodium 100 Mg Capsule) 100 mg PO BID [facility] Last Admin: 10/26/21 21:34 Dose: 100 mg Documented by: Enoxaparin Sodium (Enoxaparin 30 Mg/0.3 Ml Syringe) 30 mg SQ BID [facility] Last Admin: 10/26/21 21:36 Dose: 30 mg Documented by: Furosemide (Furosemide 20 Mg/2 Ml Vial) 20 mg IV BIDD [facility] Last Admin: 10/27/21 07:08 Dose: 20 mg Documented by: Glucose (Dextrose 31 Gm Oral.Susp) 15 gm PO PRN PRN PRN Reason: Hypoglycemia Guaifenesin/Codeine Phosphate (Guaifenesin/Codeine 10 Ml Udc) 10 ml PO Q4HP PRN PRN Reason: Cough Last Admin: 10/27/21 07:08 Dose: 10 ml Documented by: Hydralazine HCl (Hydralazine 20 Mg/Ml Vial) 10 mg IV Q4-6HP PRN PRN Reason: Hypertension Azithromycin 500 mg/ Dextrose 250 mls @ 250 mls/hr IV Q24H [facility]; Protocol Stop: 10/27/21 13:59 Last Infusion: 10/26/21 10:47 Dose: Infused Documented by: REMDESIVIR 100 mg/ Sodium (Chloride) 250 mls @ 500 mls/hr IV Q24H [facility] Stop: 10/29/21 10:29 Last Infusion: 10/26/21 12:49 Dose: Infused Documented by: Acetaminophen (Ofirmev) 650 mg in 65 mls @ 130 mls/hr IV Q6HP PRN; Protocol PRN Reason: Per Pain Protocol/Fever > 101 Last Infusion: 10/27/21 05:43 Dose: Infused Documented by: Magnesium Sulfate (Magnesium Sulfate) 2 gm in 50 mls @ 50 mls/hr IV UD PRN PRN Reason: MG = or < 1.7 Ceftriaxone Sodium 2 gm/ (Dextrose) 50 mls @ 100 mls/hr IV Q24H [facility]; Protocol Last Admin: 10/27/21 07:08 Dose: 100 mls/hr Documented by: Insulin Glargine (Insulin Glargine, Human 1 Unit/0.01 Ml) 60 unit SQ DAILY [facility] Last Admin: 10/26/21 09:48 Dose: 60 unit Documented by: Insulin Human Lispro (Insulin Lispro 1 Unit/0.01 Ml Unit) 0 unit SQ ACHS [facility]; Protocol Last Admin: 10/27/21 07:26 Dose: Not Given Documented by: Iron Carb/Multivit/Demolitionist/Folic Acid (Multivit,Ther Iron,Ca,Fa & Min 1 Tablet) 1 tab PO DAILY [facility] Last Admin: 10/26/21 09:48 Dose: 1 tab Documented by: Lidocaine (Lidocaine Patch) 1 patch TOPICAL DAILY@1000 [facility] Last Admin: 10/26/21 10:00 Dose: 1 patch Documented by: Lisinopril (Lisinopril 20 Mg Tablet) 20 mg PO DAILY [facility] Lorazepam (Lorazepam 2 Mg/Ml Vial) 0.5 mg IV Q6HP PRN PRN Reason: ANXIETY/SEDATION Last Admin: 10/27/21 05:14 Dose: 0.5 mg Documented by: Melatonin (Melatonin 3 Mg Tablet) 3 mg PO HSP PRN PRN Reason: Insomnia Last Admin: 10/26/21 21:36 Dose: 3 mg Documented by: Nicotine Polacrilex (Nicotine Polacrilex 2 Mg Gum) 4 mg CHEW/PARK Q1-2HP PRN PRN Reason: Smoking Cessation Omeprazole (Omeprazole 20 Mg Capsule) 40 mg PO ACB [facility] Last Admin: 10/27/21 07:28 Dose: 40 mg Documented by: Ondansetron HCl (Ondansetron 4 Mg Odt Tablet) 4 mg SL Q4-6HP PRN; Protocol PRN Reason: Nausea And Vomiting Ondansetron HCl (Ondansetron 4 Mg/2 Ml Vial) 4 mg IV Q4-6HP PRN; Protocol PRN Reason: Nausea And Vomiting Empagliflozin [ (Jardiance] 25 Mg Tab) 1 dose PO DAILY [facility] Last Admin: 10/26/21 11:56 Dose: Not Given Documented by: Polyethylene Glycol (Polyethylene Glycol 3350 17 Gm Packet) 17 gm PO DAILYP PRN PRN Reason: Constipation Potassium Chloride (Potassium Chloride 20 Meq Packet) 40 meq PO DAILYP PRN PRN Reason: K+ < 3.5 Senna/Docusate Sodium (Sennosides/Docusate Sodium 1 Tab Tablet) 1 tab PO HS [facility] Last Admin: 10/26/21 21:36 Dose: 1 tab Documented by: Sodium Chloride (0.9 % Sodium Chloride 10 Ml Syringe) 10 ml IV Q8 [facility] Last Admin: 10/27/21 05:36 Dose: 10 ml Documented by: Tamsulosin HCl (Tamsulosin 0.4 Mg Capsule) 0.4 mg PO HS [facility] Last Admin: 10/26/21 21:35 Dose: 0.4 mg Documented by: A/P Narrative A/P Narrative: A: *COVID-19 pneumonia w/ARDS: *Acute hypoxic respiratory failure: -required bipap last night *DM type II: *HTN: *GERD: *Morbid obesity: Very high risk mortality Plan: -patient made aware of very high risk mortality -Remdesivir/dexamethasone/empiric antibiotics, s/p Actemra -wean bipap as able -Proning/mobilization/oob to chair -IS/Acapella/RT -prn lasix -continue basal and SSI -hold ACEI/norvasc/BB for low normal BP and mild bradycardia -Nutrition support/early mobilization -ppx: lovenox / home ppi full code Time Spent With Patient Time: Total time spent is greater than 50% in coordination of care (as documented) at patient's floor/unit and/or counseling patient: QUALITY VTE Deep Vein Thrombosis/Pulmonary Embolism Present on Admission: No
[2021-10-27 08:35] LABS: Basophils # (Auto) 0.01 K/mcL (0.00-0.30); Basophils % (Auto) 0.2 % (0.0-2.0); Eosinophils # (Auto) 0.05 K/mcL (0.00-0.70); Eosinophils % (Auto) 0.8 % (0.0-7.0); Hematocrit 51.8 % (40.1-51.0); Hemoglobin 17.7 g/dL (13.7-17.5); Lymphocytes # (Auto) 0.81 K/mcL (1.50-4.80); Lymphocytes % (Auto) 13.2 % (15.5-49.0); Mean Cell Volume 86.2 fL (80.0-100.0); Mean Corpuscular HGB Conc 34.2 g/dL (31.0-36.0); Mean Platelet Volume 10.6 fL (7.4-10.4); Monocytes # (Auto) 0.28 K/mcL (0.10-0.90); Monocytes % (Auto) 4.6 % (1.0-12.0); Neutrophils % (Auto) 81.2 % (38.0-78.0); Platelet Count 233 K/mcL (140-440); RBC 6.01 M/mcL (4.63-6.08); Red Cell Distribution Width 14.5 % (11.5-14.5); WBC 6.2 K/mcL (4.5-11.0)
[2021-10-27] MEDS: ASPIRIN 81 MG TAB.CHEW PO SCH (08:55)
[2021-10-27] MEDS: INSULIN GLARGINE, HUMAN 1 UNIT/0.01 ML SQ SCH (08:56)
[2021-10-27] MEDS: DOCUSATE SODIUM 100 MG CAPSULE PO SCH ×2 (08:56→21:08)
[2021-10-27] MEDS: MULTIVIT,THER IRON,CA,FA & MIN 1 TABLET PO SCH (08:56)
[2021-10-27] MEDS: HYDROcodone/APAP 5/325MG TABLET PO PRN ×2 (08:59→18:48)
[2021-10-27] MEDS ORDERED: LISINOPRIL 20 MG TABLET PO SCH (09:00)
[2021-10-27] MEDS ORDERED: ENOXAPARIN 30 MG/0.3 ML SYRINGE SQ SCH (09:00)
[2021-10-27] MEDS: AZITHROMYCIN 500 MG in DEXTROSE 5% IN WATER 250 ML IV SCH (09:18)
[2021-10-27 09:24] LABS: ALT/SGPT 50 U/L (<40); AST/SGOT 58 U/L (<40); Albumin 3.4 gm/dL (3.2-5.2); Albumin/Globulin Ratio 0.9 (1.0-2.3); Alkaline Phosphatase 122 U/L (39-117); Bilirubin,Direct < 0.2 mg/dL (0-0.3); Bilirubin,Total 0.5 mg/dL (0.1-1.0); Blood Urea Nitrogen 21 mg/dL (6-20); Carbon Dioxide 22 mmol/L (22-30); Chloride 98 mmol/L (96-108); Glomerular Filtration Rate 95; Glucose 98 mg/dL (70-105); Lactate Dehydrogenase 645 U/L (135-225); Phosphorous 3.2 mg/dL (2.5-4.5); Triglycerides 211 mg/dL (<150); Uric Acid 6.3 mg/dL (2.5-8.0)
[2021-10-27] MEDS: ENOXAPARIN 40 MG/0.4 ML SYRINGE SQ SCH ×2 (09:41→21:09)
[2021-10-27] MEDS: IPRATROPIUM/ALBUTEROL 3 ML AMPUL.NEB NEB PRN ×2 (10:03→17:36)
[2021-10-27] MEDS: LIDOCAINE PATCH TOPICAL SCH (10:13)
[2021-10-27] MEDS: REMDESIVIR 100 MG in 0.9 % SODIUM CHLORIDE 250 ML IV SCH (10:55)
[2021-10-27] MEDS: morphine 2 MG/ML VIAL IV PRN ×2 (17:10→21:15)
[2021-10-27] MEDS: TAMSULOSIN 0.4 MG CAPSULE PO SCH (21:08)
[2021-10-27] MEDS: ATORVASTATIN 40 MG TABLET PO SCH (21:09)
[2021-10-27] MEDS: SENNOSIDES/DOCUSATE SODIUM 1 TAB TABLET PO SCH (21:10)
[2021-10-28] MEDS: LORazepam 2 MG/ML VIAL IV PRN ×3 (00:14→19:00)
[2021-10-28] MEDS: HYDROcodone/APAP 5/325MG TABLET PO PRN ×3 (00:15→09:12)
[2021-10-28] MEDS: morphine 2 MG/ML VIAL IV PRN ×3 (02:13→11:14)
[2021-10-28] MEDS: 0.9 % SODIUM CHLORIDE 10 ML SYRINGE IV SCH ×2 (05:52→14:00)
[2021-10-28 07:01] LABS: Hematocrit 49.7 % (40.1-51.0); Mean Cell Volume 88.6 fL (80.0-100.0); Mean Corpuscular HGB Conc 32.2 g/dL (31.0-36.0); Mean Platelet Volume 9.7 fL (7.4-10.4); Platelet Count 209 K/mcL (140-440); RBC 5.61 M/mcL (4.63-6.08); Red Cell Distribution Width 14.3 % (11.5-14.5); WBC 6.4 K/mcL (4.5-11.0)
--- NOTE | 2021-10-28 08:40 | Internal Med Progress Note ---
SUBJECTIVE Subjective Patient information: Note initiated : 10/28/21 at 8:37 am Service Date, if different from initiated Date: [] Patient: Demarcus Koch a 56 y/o M admitted on 10/25/21 for hypoxia. Chief Complaint: [] Interval history: History of present illness: Mr. Koch is a 56 year old M morbidly obese unvaccinated for Covid with a history of diabetes/hypertension/[facility] patient who presents to the ER with worsening shortness of breath along with weakness. Patient was recently diagnosed on with Covid and was discharged on home oxygen/steroids. His symptoms started roughly around 13 October. Symptoms during fever, chills, malaise, fatigue, nonproductive cough weakness and fatigue. He also has associated loss of appetite. Initial work-up in the ER was consistent with severe hypoxia respiratory failure/bilateral chest infiltrates consistent with Covid pneumonia. Patient was started on nonrebreather oxygen. Initial blood gas 7.4/ on 100 percent FiO2 nonrebreather. Patient was started on remdesivir. Subsequently hospitalist service consulted At the time of my evaluation patient is extremely anxious, labored. He was able to talk in near full sentences but visibly short of breath requiring high flow oxygen to maintain sats above 90. He was able to endorse to history as above. He has associated diarrhea. He has been taking his steroids/home oxygen however his sats has been dropping to as low as 60s. He otherwise denies changes in medication, photophobia, joint pain, rash, glandular swelling 10/26 Patient not vaccinated. Patient feels he may be breathing a little better than yesterday. States he slept all right. Currently on CPAP at 100% FiO2 with sats low 90s. Dry cough. 10/27 Feels about the same as yesterday. States he does not feel any worse. Required high oxygen last night seems to be doing better on his left side. Down to 60% on a BiPAP of 01/09. 10/28 Patient says he feels the same but he is not making any progress with his oxygenation. Back up to 80-100% FiO2 since yesterday evening. Unable to position him on anything but the left side as placing on back or right side he desats significantly and takes awhile to recover. Unable to tolerate proning. MARCK <4.88 Discussed with him the likely need for intubation and transfer for which she is agreeable. Review of Systems: denies headache/fever/chills/nausea/vomiting/chest or abdominal pain/diarrhea. Otherwise see above. Constitutional Vitals: Vital Signs Temp Pulse Resp BP Pulse Ox 99.3 F H 77 18 114/75 91 10/28/21 08:01 10/28/21 08:01 10/28/21 08:01 10/28/21 08:01 10/28/21 08:01 Period Temp Pulse Resp BP Sys/Saez Pulse Ox Last 24 Hr 98.1 F-99.3 F 62-99 12-90 112-148/53-95 17-96 Intake and Output 10/27/21 10/28/21 10/28/21 21:59 05:59 13:59 Intake Total 450 1320 Output Total 1110 555 Balance -660 765 Weight 141.612 kg Intake & Output: Intake & Output 10/27/21 10/28/21 10/28/21 21:59 05:59 13:59 Intake Total 450 1320 Output Total 1110 555 Balance -660 765 Weight 141.612 kg Intake: Nourishment/Supplement quantity 240 (ml) Oral 450 1080 Output: Urine Catheter Amount 1110 555 Other: Nourishment/Supplement name Glucerna Urine Appearance Clear Clear Uretheral (Pugh) Clear Urine Color Dark Yellow Dark Yellow Uretheral (Pugh) Dark Yellow Exam: General: Alert, Awake, No acute Distress, obese Eyes/N/T: EOMI, Head/Neck: neck supple, CV: RRR, No murmurs, Pulm: Severely diminished, no wheezing Abd: soft, nontender, +BS x4 Ext: no clubbing/cyanosis, Neuro: Alert, no focal deficits, moves all extremities, Skin: warm/dry OBJ DATA Labs CBC & Chem 7: 10/28/21 05:56 10/28/21 05:29 Labs: Abnormal Lab Results 10/28/21 10/27/21 10/27/21 05:29 06:23 06:22 Hgb 17.7 H Hct 51.8 H RDW MPV 10.6 H Neut % (Auto) 81.2 H Lymph % (Auto) 13.2 L Lymph # (Auto) 0.81 L Absolute Neutrophils D-Dimer 3.24 H Carbon Dioxide BUN 21 H Glucose Magnesium 2.8 H Ferritin GGT 114 H AST 58 H ALT 50 H Alkaline Phosphatase 122 H Lactate Dehydrogenase 645 H C-Reactive Protein Globulin 4.0 H Albumin/Globulin Ratio 0.9 L Triglycerides 211 H Procalcitonin 10/26/21 10/26/21 10/26/21 14:36 05:45 05:44 Hgb Hct RDW MPV Neut % (Auto) Lymph % (Auto) Lymph # (Auto) Absolute Neutrophils D-Dimer Carbon Dioxide 18 L BUN 29 H 27 H Glucose 139 H 145 H Magnesium 2.9 H Ferritin 1652.0 H GGT 104 H AST 44 H ALT Alkaline Phosphatase Lactate Dehydrogenase 612 H C-Reactive Protein Globulin 3.8 H Albumin/Globulin Ratio 0.9 L Triglycerides 163 H Procalcitonin 10/26/21 10/26/21 10/26/21 05:44 05:44 05:42 Hgb Hct RDW 14.7 H MPV 10.9 H Neut % (Auto) 80.9 H Lymph % (Auto) 10.9 L Lymph # (Auto) 0.95 L Absolute Neutrophils D-Dimer 4.29 H Carbon Dioxide BUN Glucose Magnesium Ferritin GGT AST ALT Alkaline Phosphatase Lactate Dehydrogenase C-Reactive Protein 4.50 H Globulin Albumin/Globulin Ratio Triglycerides Procalcitonin 10/25/21 10/25/21 10/25/21 13:11 13:11 09:40 Hgb Hct RDW MPV Neut % (Auto) Lymph % (Auto) Lymph # (Auto) Absolute Neutrophils D-Dimer 1.25 H Carbon Dioxide 20 L BUN 28 H Glucose 194 H Magnesium 2.7 H Ferritin GGT 103 H AST 44 H ALT Alkaline Phosphatase Lactate Dehydrogenase 602 H C-Reactive Protein 6.50 H Globulin Albumin/Globulin Ratio 0.9 L Triglycerides 193 H Procalcitonin 0.16 H 10/25/21 10/25/21 09:40 09:40 Hgb Hct RDW 14.6 H MPV Neut % (Auto) 89.2 H Lymph % (Auto) 6.2 L Lymph # (Auto) 0.63 L Absolute Neutrophils 9.02 H D-Dimer Carbon Dioxide BUN Glucose Magnesium Ferritin 1678.0 H GGT AST ALT Alkaline Phosphatase Lactate Dehydrogenase C-Reactive Protein Globulin Albumin/Globulin Ratio Triglycerides Procalcitonin Meds: Medications Acetaminophen (Acetaminophen 325 Mg Tablet) 650 mg PO Q4-6HP PRN; Protocol PRN Reason: Per Pain Protocol/Fever > 101 Hydrocodone Bitart/Acetaminophen (Hydrocodone/Apap 5/325mg Tablet) 1 tab PO Q4HP PRN; Protocol PRN Reason: Per Pain Protocol Last Admin: 10/28/21 03:35 Dose: 1 tab Documented by: Albuterol Sulfate (Albuterol Sulfate 200 Puff Inhaler) 1 - 2 puff INH Q4HP PRN PRN Reason: Shortness Of Breath Albuterol/Ipratropium (Ipratropium/Albuterol 3 Ml Ampul.Neb) 3 ml NEB Q4HP PRN PRN Reason: Shortness Of Breath Last Admin: 10/27/21 17:36 Dose: 3 ml Documented by: Aspirin (Aspirin 81 Mg Tab.Chew) 81 mg PO DAILY [facility] Last Admin: 10/27/21 08:55 Dose: 81 mg Documented by: Atorvastatin Calcium (Atorvastatin 40 Mg Tablet) 40 mg PO HS [facility] Last Admin: 10/27/21 21:09 Dose: 40 mg Documented by: Bisacodyl (Bisacodyl 10 Mg Supp.Rect) 10 mg MO Q2-3DAYS PRN PRN Reason: Constipation Dextrose (Dextrose 50% 50 Ml Vial) 0 ml IV UD PRN PRN Reason: Hypoglycemia Diagnostic Test (Pha) (Accu-Chek 1 Each Strip) 1 each FS ACHS [facility] Last Admin: 10/27/21 21:30 Dose: 1 each Documented by: Docusate Sodium (Docusate Sodium 100 Mg Capsule) 100 mg PO BID [facility] Last Admin: 10/27/21 21:08 Dose: 100 mg Documented by: Enoxaparin Sodium (Enoxaparin 40 Mg/0.4 Ml Syringe) 40 mg SQ BID [facility] Last Admin: 10/27/21 21:09 Dose: 40 mg Documented by: Glucose (Dextrose 31 Gm Oral.Susp) 15 gm PO PRN PRN PRN Reason: Hypoglycemia Guaifenesin/Codeine Phosphate (Guaifenesin/Codeine 10 Ml Udc) 10 ml PO Q4HP PRN PRN Reason: Cough Last Admin: 10/27/21 13:22 Dose: 10 ml Documented by: Hydralazine HCl (Hydralazine 20 Mg/Ml Vial) 10 mg IV Q4-6HP PRN PRN Reason: Hypertension REMDESIVIR 100 mg/ Sodium (Chloride) 250 mls @ 500 mls/hr IV Q24H [facility] Stop: 10/29/21 10:29 Last Infusion: 10/27/21 11:25 Dose: Infused Documented by: Acetaminophen (Ofirmev) 650 mg in 65 mls @ 130 mls/hr IV Q6HP PRN; Protocol PRN Reason: Per Pain Protocol/Fever > 101 Last Infusion: 10/27/21 05:43 Dose: Infused Documented by: Magnesium Sulfate (Magnesium Sulfate) 2 gm in 50 mls @ 50 mls/hr IV UD PRN PRN Reason: MG = or < 1.7 Ceftriaxone Sodium 2 gm/ (Dextrose) 50 mls @ 100 mls/hr IV Q24H [facility]; Protocol Last Infusion: 10/27/21 07:38 Dose: Infused Documented by: Insulin Glargine (Insulin Glargine, Human 1 Unit/0.01 Ml) 60 unit SQ DAILY [facility] Last Admin: 10/27/21 08:56 Dose: 60 unit Documented by: Insulin Human Lispro (Insulin Lispro 1 Unit/0.01 Ml Unit) 0 unit SQ ACHS [facility]; Protocol Last Admin: 10/27/21 22:26 Dose: Not Given Documented by: Iron Carb/Multivit/Ring[place]/Folic Acid (Multivit,Ther Iron,Ca,Fa & Min 1 Tablet) 1 tab PO DAILY [facility] Last Admin: 10/27/21 08:56 Dose: 1 tab Documented by: Lidocaine (Lidocaine Patch) 1 patch TOPICAL DAILY@1000 [facility] Last Admin: 10/27/21 10:13 Dose: 1 patch Documented by: Lorazepam (Lorazepam 2 Mg/Ml Vial) 0.5 mg IV Q4HP PRN PRN Reason: ANXIETY/SEDATION Last Admin: 10/28/21 03:31 Dose: 0.5 mg Documented by: Melatonin (Melatonin 3 Mg Tablet) 3 mg PO HSP PRN PRN Reason: Insomnia Last Admin: 10/26/21 21:36 Dose: 3 mg Documented by: Morphine Sulfate (Morphine 2 Mg/Ml Vial) 1 - 3 mg IV Q3HP PRN; Protocol PRN Reason: Per Pain Protocol Last Admin: 10/28/21 05:29 Dose: 2 mg Documented by: Nicotine Polacrilex (Nicotine Polacrilex 2 Mg Gum) 4 mg CHEW/PARK Q1-2HP PRN PRN Reason: Smoking Cessation Omeprazole (Omeprazole 20 Mg Capsule) 40 mg PO ACB [facility] Last Admin: 10/27/21 07:28 Dose: 40 mg Documented by: Ondansetron HCl (Ondansetron 4 Mg Odt Tablet) 4 mg SL Q4-6HP PRN; Protocol PRN Reason: Nausea And Vomiting Ondansetron HCl (Ondansetron 4 Mg/2 Ml Vial) 4 mg IV Q4-6HP PRN; Protocol PRN Reason: Nausea And Vomiting Empagliflozin [ (Jardiance] 25 Mg Tab) 1 dose PO DAILY [facility] Last Admin: 10/27/21 15:13 Dose: Not Given Documented by: Polyethylene Glycol (Polyethylene Glycol 3350 17 Gm Packet) 17 gm PO DAILYP PRN PRN Reason: Constipation Potassium Chloride (Potassium Chloride 20 Meq Packet) 40 meq PO DAILYP PRN PRN Reason: K+ < 3.5 Senna/Docusate Sodium (Sennosides/Docusate Sodium 1 Tab Tablet) 1 tab PO [facility] Last Admin: 10/27/21 21:10 Dose: 1 tab Documented by: Sodium Chloride (0.9 % Sodium Chloride 10 Ml Syringe) 10 ml IV Q8 [facility] Last Admin: 10/28/21 05:52 Dose: 10 ml Documented by: Tamsulosin HCl (Tamsulosin 0.4 Mg Capsule) 0.4 mg PO [facility] Last Admin: 10/27/21 21:08 Dose: 0.4 mg Documented by: A/P Narrative A/P Narrative: A: *COVID-19 pneumonia w/ARDS: *Acute hypoxic respiratory failure: -on bipap fio2 80-100% *DM type II: A1c *HTN: *GERD: *Morbid obesity: Very high risk mortality Plan: -Pt not improving on noninvasive O2 support, desats with any movement, only position that provides adequates saturations is left side, MARCK <4.88. Fio2 90- 100%. poor tidal volumes. Likely need for intubation and higher level of care -Remdesivir/dexamethasone/empiric antibiotics, s/p Actemra -Proning/mobilization/oob to chair -IS/Acapella/RT -prn lasix -continue basal and SSI -hold ACEI/norvasc/BB for low normal BP and mild bradycardia -Nutrition support/early mobilization -ppx: lovenox / home ppi full code Time Spent With Patient Time: Total time spent is greater than 50% in coordination of care (as documented) at patient's floor/unit and/or counseling patient: QUALITY VTE Deep Vein Thrombosis/Pulmonary Embolism Present on Admission: No
[2021-10-28] MEDS: OMEPRAZOLE 20 MG CAPSULE PO SCH (08:49)
[2021-10-28] MEDS: MULTIVIT,THER IRON,CA,FA & MIN 1 TABLET PO SCH (09:11)
[2021-10-28] MEDS: guaiFENesin/CODEINE 10 ML UDC PO PRN (09:11)
[2021-10-28] MEDS: cefTRIAXone 2 GM in DEXTROSE 5% IN WATER 50 ML IV SCH (09:11)
[2021-10-28] MEDS: INSULIN LISPRO 1 UNIT/0.01 ML UNIT SQ SCH ×3 (09:11→16:06)
[2021-10-28] MEDS: INSULIN GLARGINE, HUMAN 1 UNIT/0.01 ML SQ SCH (09:11)
[2021-10-28] MEDS: DOCUSATE SODIUM 100 MG CAPSULE PO SCH (09:12)
[2021-10-28] MEDS: ASPIRIN 81 MG TAB.CHEW PO SCH (09:12)
[2021-10-28] MEDS: ENOXAPARIN 40 MG/0.4 ML SYRINGE SQ SCH (09:12)
[2021-10-28 10:17] LABS: ALT/SGPT 35 U/L (<40); AST/SGOT 44 U/L (<40); Albumin 2.9 gm/dL (3.2-5.2); Albumin/Globulin Ratio 0.9 (1.0-2.3); Alkaline Phosphatase 108 U/L (39-117); Bilirubin,Direct < 0.2 mg/dL (0-0.3); Bilirubin,Total 0.4 mg/dL (0.1-1.0); Blood Urea Nitrogen 17 mg/dL (6-20); Calcium 8.6 mg/dL (8.6-10.4); Carbon Dioxide 19 mmol/L (22-30); Chloride 97 mmol/L (96-108); Globulin 3.2 gm/dL (2.2-3.7); Glomerular Filtration Rate 105; Glucose 141 mg/dL (70-105); Lactate Dehydrogenase 568 U/L (135-225); Phosphorous 2.7 mg/dL (2.5-4.5); Triglycerides 258 mg/dL (<150); Uric Acid 5.5 mg/dL (2.5-8.0)
[2021-10-28] MEDS ORDERED: ONDANSETRON 4 MG/2 ML VIAL IV ONE (11:20)
[2021-10-28] MEDS: REMDESIVIR 100 MG in 0.9 % SODIUM CHLORIDE 250 ML IV SCH (11:22)
[2021-10-28] MEDS: LIDOCAINE PATCH TOPICAL SCH (11:23)
[2021-10-28] MEDS ORDERED: SODIUM CHLORIDE 0.9% IV ONE (11:35)
[2021-10-28] MEDS ORDERED: KETAMINE IV ONE (11:35)
[2021-10-28] MEDS ORDERED: ROCURONIUM 10 MG/ML ML IV ONE (11:39)
[2021-10-28] MEDS: fentaNYL 100 MCG/2 ML VIAL IV ONE ×2 (11:47→16:11)
[2021-10-28] MEDS: MIDAZOLAM 2 MG/2 ML VIAL IV ONE ×2 (11:47→16:10)
[2021-10-28] MEDS ORDERED: KETAMINE 50 MG/ML ML ONE ×2 (12:19→12:34)
[2021-10-28] MEDS ORDERED: KETAMINE 100 MG/ML ML IV ONE (12:30)
[2021-10-28] MEDS ORDERED: KETAMINE 50 MG/ML ML IV ONE (12:35)
--- NOTE | 2021-10-28 13:20 | Emergency Department Note ---
HPI General Chief complaint: Shortness of Breath/Dyspnea Stated complaint: hypoxia Time Seen by Provider: 10/25/21 09:21 Source: patient Mode of arrival: ambulatory Limitations: no limitations History of Present Illness HPI Narrative: Narrative: I was consulted by Dr Canales, hospitalist, for intubation. For full details please see ED and hospitalist notes. In brief, this patient is admitted to the ICU w/ COVID19 in the setting of obesity, HTN, HLD, and DM. He has been managed w/ BIPAP but is having serious desaturations to the 70s w/ movement, and is having progressive O2 requirements and PEEP. Currently he is in the high 80s on 100%O2 via BIPAP. Dr Canales feels that intubation will facilitate position c hanges and improve O2 delivery. I discussed the procedure with the patient and he is in agreement. Related Data Home Medications Medication Instructions Recorded Confirmed Accu-Chek Guide Glucose Meter 10/25/21 10/25/21 Adult Low Dose Aspirin 81 mg PO DAILY 10/25/21 10/25/21 Fish Oil 1,000 mg PO DAILY 10/25/21 10/25/21 albuterol 90 mcg INHALATION Q4-6HP PRN 10/25/21 10/25/21 amlodipine 10 mg PO DAILY 10/25/21 10/25/21 cholecalciferol (vitamin D3) 50 mcg PO DAILY 10/25/21 10/25/21 empagliflozin 25 mg PO DAILY 10/25/21 10/25/21 ergocalciferol (vitamin D2) 1,250 mcg PO Q3-4DAYS 10/25/21 10/25/21 insulin aspart U-100 30 units SUBCUT BID 10/25/21 10/25/21 insulin glargine 60 units SUBCUT DAILY 10/25/21 10/25/21 lisinopril 40 mg PO DAILY 10/25/21 10/25/21 metoprolol tartrate 100 mg PO BID 10/25/21 10/25/21 nicotine (polacrilex) 4 mg PO Q1-2HP PRN MDD 80 10/25/21 10/25/21 omeprazole 40 mg PO DAILY 10/25/21 10/25/21 pioglitazone 30 mg PO DAILY 10/25/21 10/25/21 rosuvastatin 40 mg PO DAILY 10/25/21 10/25/21 Allergies Allergy/AdvReac Type Severity Reaction Status Date / Time No Known Drug Allergies Allergy Verified 10/25/21 11:58 Review of Systems ROS ROS Narrative: Narrative: PFSH Narrative Patient History Narrative: Narrative: Medical/Surgical/Family History All Active Problems (Updated 10/28/21 @ 13:20 by Jaden Del Cid MD) COVID-19 (Acute) Respiratory failure, acute (Acute) Social History Smoking Status: Smoker, status unknown Exam Narrative Narrative: Narrative: General Limitations: no limitations General appearance: Present obese and other (drowsy but arousable) Head Head: Present atraumatic and normocephalic ENT ENT: Present other (BIPAP in place) Chest Chest: Present normal inspection and symmetric chest wall rise Respiratory Respiratory: Present decreased breath sounds (markedly diminished B/L); Absent respiratory distress, rales/crackles or wheezes Cardiovascular Cardiovascular: Present regular rate, normal rhythm and other (2+ B/L radial pulses); Absent systolic murmur or diastolic murmur Course Vital Signs Vital signs: Vital Signs Pulse Rate 102 H 10/25/21 09:20 Respiratory Rate 25 H 10/25/21 09:20 Pulse Oximetry (%) 56 L 10/25/21 09:20 Temperature 99.3 F H 10/28/21 12:02 Pulse Rate 98 H 10/28/21 09:21 Respiratory Rate 16 10/28/21 12:02 Blood Pressure 128/78 10/28/21 12:02 Pulse Oximetry (%) 92 10/28/21 12:02 MDM MDM Narrative Medical decision making narrative: Narrative: I agreed w/ the hospitalists request for intubation. I completed this as noted above, and care was then resumed by Dr Canales who was already present in room. Lab Data Result diagrams: 10/28/21 05:56 10/28/21 05:29 Labs: Lab Results 10/25/21 10/25/21 10/25/21 Range/Units 09:40 09:40 09:40 WBC 10.1 (4.5-11.0) K/mcL RBC 5.54 (4.63-6.08) M/mcL Hgb 16.1 (13.7-17.5) g/dL Hct 47.4 (40.1-51.0) % MCV 85.6 (80.0-100.0) fL MCH 29.1 (26.0-34.0) pg MCHC 34.0 (31.0-36.0) g/dL RDW 14.6 H (11.5-14.5) % Plt Count 233 (140-440) K/mcL MPV 9.8 (7.4-10.4) fL Neut % (Auto) 89.2 H (38.0-78.0) % Lymph % (Auto) 6.2 L (15.5-49.0) % Dukes % (Auto) 4.3 (1.0-12.0) % Eos % (Auto) 0 (0.0-7.0) % Baso % (Auto) 0.3 (0.0-2.0) % Lymph # (Auto) 0.63 L (1.50-4.80) K/mcL Dukes # (Auto) 0.43 (0.10-0.90) K/mcL Eos # (Auto) 0 (0.00-0.70) K/mcL Baso # (Auto) 0.03 (0.00-0.30) K/mcL Absolute Neutrophils 9.02 H (1.80-8.00) K/mcL Ferritin 1678.0 H (30.0-400.0) ng/mL Procalcitonin 0.16 H (<0.10) ng/mL Procedures Intubation Time out performed: Yes sedative: Ketamine Mg Given: 150 paralytic: Rocuronium Mg Given: 100 Laryngoscope: glide ET Tube Size: 7.5 Tube Secured Depth (cm): 22 Tube Secured Location: lips Tube Placement Confirmation: visualized tube passing through cords, equal breath sounds bilaterally, no breath sounds over epigastrium and confirmation by capnometry Patient Tolerated Procedure: well Intubation Complications: hypoxia Additional Comments: After performing a time out and going over the intubation plan, we gave ketamine and rocuronium w/ good effect. Prior to this, I had already ensured that suction was setup, and pt was pre-oxygenated w/ BIPAP and w/ 15L NC. The latter was left on through the entire procedure. The only position that seemed to work well for oxygenation of the pt was slightly on his left side and sitting partially upright. I maintained this position for the intubation. I introduced the glidescope and had excellent view of the cords and then easily introduced a 7.5ETT securing it at 22cm at the lip. Color capnography and auscultation confirmed. ETCO2 apparently not available. CXR pending, Dr Canales will follow up on this. Discharge Plan Patient/Caregiver Discharge Instructions Pt seen by DIGITAL TECH/PA only: No Clinical Impression: COVID-19, Respiratory failure, acute Patient Disposition: Xfer As Inpt ([facility]) Discharge Date/Time: 10/25/21 11:34
[2021-10-28 13:46] LABS: Hemoglobin A1C 7.6 % Hgb (4.0-6.0)
[2021-10-28] MEDS: PROPOFOL 1,000 MG in PREMIX 1 BAG IV SCH ×2 (13:55→17:15)
--- NOTE | 2021-10-28 13:58 | Procedure Note ---
PROC Central Line Placement Right IJ: Date of Procedure: 10/28/21 Time out performed: Yes Patient placed on monitor/pulse ox: Yes MD prep: mask, sterile gown and sterile gloves Central line prep: 2% Chlorhexidine scrub Ultrasound used for placement: Yes Central line lumen inserted: quad and 16 cm Post procedure: sutured in place, good blood return, all ports aspirated, flushed, capped and sterile dressing applied Patient tolerated procedure: well Complications: none Additional comments: Stat chest x-ray ordered to confirm placement
[2021-10-28] MEDS ORDERED: METOPROLOL TARTRATE 5 MG/5 ML VIAL IV ONE (14:04)
--- NOTE | 2021-10-28 14:05 | XRay Report ---
INDICATION: central line ETT placement TECHNIQUE: AP supine chest x-ray COMPARISON: None FINDINGS:Endotracheal tube tip at the thoracic inlet Esophagogastric tube in the stomach, off the plane of this image Right central venous catheter tip at the junction of the superior vena cava and right atrium. Lungs:Diffuse pulmonary parenchymal infiltrates consistent with severe covid pneumonia. Infiltrates appear worse than on previous examination dated 10/27/2021. Heart, vascular:No significant cardiomegaly. Pulmonary vascularity is normal. No pulmonary edema or pulmonary congestion Mediastinum, renea:No mediastinal widening. No hilar mass Pleura:No detectable pleural fluid on this AP supine radiograph. There is lucency at the right lung base. Appearance is not typical of pneumothorax, even on a supine chest x-ray. Follow-up examination recommended. Upright portable chest x-ray would be helpful when clinically appropriate. This lucency was probably present on examination prior to placing the right central venous catheter although it was slightly less apparent Skeletal:Negative. IMPRESSION: 1. Increasing infiltrates consistent with severe covid pneumonia 2. Endotracheal tube tip at the thoracic inlet 3. Right central venous catheter tip at the junction superior vena cava and right atrium 4. Esophagogastric tube in the stomach 5. Mild right basilar lucency is of uncertain significance. Follow-up examination recommended to exclude basilar pneumothorax Interpreted and Authenticated by: Ted Morelos 10/28/21
[2021-10-28] MEDS ORDERED: fentaNYL 100 MCG/2 ML VIAL IV ONE (14:19)
--- NOTE | 2021-10-28 15:39 | XRay Report ---
INDICATION: f/u ?RLL lucency, r/o ptx TECHNIQUE: AP portable supine chest x-ray COMPARISON: None FINDINGS:No change in positions of the esophagogastric tube, endotracheal tube, right central venous catheter. Lungs:Extensive bilateral pulmonary parenchymal infiltrates consistent with severe covid pneumonia. Heart, vascular:No significant cardiomegaly. Pulmonary vascularity is normal. No pulmonary edema or pulmonary congestion Mediastinum, renea:No mediastinal widening. No hilar mass Pleura:Right basilar lucency is again noted. Appearance is not considered typical of a pneumothorax. There is no apical or lateral pneumothorax. Skeletal:Negative. IMPRESSION: 1. Severe bilateral pulmonary parenchymal infiltrates consistent with covid pneumonia 2. No evidence for pneumothorax Interpreted and Authenticated by: Ted Morelos 10/28/21
--- NOTE | 2021-10-28 16:12 | Transfer Summary ---
Discharge Provider Provider Patient information: Note initiated : 10/28/21 at 4:08 pm Service Date, if different from initiated Date: [] Patient: Demarcus Koch 56 y/o M admitted on 10/25/21 for hypoxia. Chief Complaint: [] Date of admission: 10/25/21 11:34 Discharge date: 10/28/21 Primary care physician: PCP No Consults: 10/25/21 Consult to Physician [CONS] Stat Comment: Consulting Provider: Hero Hickman Reason For Exam: Physician to Consult Discharge Meds Discharge Medications Home Medications Accu-Chek Guide Glucose Meter 10/25/21 [History Confirmed 10/25/21 Last Taken Unknown] Adult Low Dose Aspirin 81 mg PO DAILY 10/25/21 [History Confirmed 10/25/21 Last Taken Unknown] Fish Oil 1,000 mg PO DAILY 10/25/21 [History Confirmed 10/25/21 Last Taken Unknown] albuterol 90 mcg INHALATION Q4-6HP PRN 10/25/21 [History Confirmed 10/25/21 Last Taken Unknown] amlodipine 10 mg PO DAILY 10/25/21 [History Confirmed 10/25/21 Last Taken Unknown] cholecalciferol (vitamin D3) 50 mcg PO DAILY 10/25/21 [History Confirmed 10/25/21 Last Taken Unknown] empagliflozin 25 mg PO DAILY 10/25/21 [History Confirmed 10/25/21 Last Taken Unknown] ergocalciferol (vitamin D2) 1,250 mcg PO Q3-4DAYS 10/25/21 [History Confirmed 10/25/21 Last Taken Unknown] insulin aspart U-100 30 units SUBCUT BID 10/25/21 [History Confirmed 10/25/21 Last Taken Unknown] insulin glargine 60 units SUBCUT DAILY 10/25/21 [History Confirmed 10/25/21 Last Taken Unknown] lisinopril 40 mg PO DAILY 10/25/21 [History Confirmed 10/25/21 Last Taken Unknown] metoprolol tartrate 100 mg PO BID 10/25/21 [History Confirmed 10/25/21 Last Taken Unknown] nicotine (polacrilex) 4 mg PO Q1-2HP PRN MDD 80 10/25/21 [History Confirmed 10/25/21 Last Taken Unknown] omeprazole 40 mg PO DAILY 10/25/21 [History Confirmed 10/25/21 Last Taken Unknown] pioglitazone 30 mg PO DAILY 10/25/21 [History Confirmed 10/25/21 Last Taken Unknown] rosuvastatin 40 mg PO DAILY 10/25/21 [History Confirmed 10/25/21 Last Taken Unknown] COURSE Hospital Course Hospital course: History of present illness: Mr. Koch is a 56 year old M morbidly obese unvaccinated for Covid with a history of diabetes/hypertension/VA patient who presents to the ER with worsening shortness of breath along with weakness. Patient was recently diagnosed on with Covid and was discharged on home oxygen/steroids. His symptoms started roughly around 13 October. Symptoms during fever, chills, malaise, fatigue, nonproductive cough weakness and fatigue. He also has associated loss of appetite. Initial work-up in the ER was consistent with severe hypoxia respiratory failure/bilateral chest infiltrates consistent with Covid pneumonia. Patient was started on nonrebreather oxygen. Initial blood gas 7. on 100 percent FiO2 nonrebreather. Patient was started on remdesivir. Subsequently hospitalist service consulted At the time of my evaluation patient is extremely anxious, labored. He was able to talk in near full sentences but visibly short of breath requiring high flow oxygen to maintain sats above 90. He was able to endorse to history as above. He has associated diarrhea. He has been taking his steroids/home oxygen however his sats has been dropping to as low as 60s. He otherwise denies changes in medication, photophobia, joint pain, rash, glandular swelling 10/26 Patient not vaccinated. Patient feels he may be breathing a little better than yesterday. States he slept all right. Currently on CPAP at 100% FiO2 with sats low 90s. Dry cough. 10/27 Feels about the same as yesterday. States he does not feel any worse. Required high oxygen last night seems to be doing better on his left side. Down to 60% on a BiPAP of 01/09. 10/28 Patient says he feels the same but he is not making any progress with his oxygenation. Back up to 80-100% FiO2 since yesterday evening. Unable to position him on anything but the left side as placing on back or right side he desats significantly and takes awhile to recover. Unable to tolerate proning. MARCK <4.88 Discussed with him the likely need for intubation and transfer for which she is agreeable. *Patient intubated around noon. Discussed with retail merchandiser technician Dr. Kingsley at [facility] who graciously agreed to except patient care. Will work on transferring patient up to [facility] at this time. A: *COVID-19 pneumonia w/ARDS: *Acute hypoxic respiratory failure: -on bipap fio2 80-100%, *DM type II: A1c *HTN: *GERD: *Morbid obesity: Very high risk mortality Plan: -Pt not improving on noninvasive O2 support, desats with any movement, only position that provides adequate saturations is left side, MARCK <4.88. Fio2 90- 100%. poor tidal volumes. will need intubation and higher level of care -Remdesivir/dexamethasone/empiric antibiotics, s/p Actemra -Proning/mobilization/oob to chair when possible -prn lasix -continue basal and SSI -hold ACEI/norvasc/BB for low normal BP and mild bradycardia -ppx: lovenox / ppi Discharge diagnosis: COVID pneumonia with ARDS Time Spent with Patient Time attestation: Total time spent providing and/or coordinating discharge services: EXAM Constitutional Vitals: Temp Pulse Resp BP Pulse Ox 99.9 F H 98 H 16 84/64 90 10/28/21 16:01 10/28/21 09:21 10/28/21 16:01 10/28/21 16:01 10/28/21 16:01 Discharge Data Data Completed and Pending Labs on day of discharge: Labs from last 24 hours 10/28/21 10/28/21 10/28/21 05:56 05:56 05:30 WBC 6.4 RBC 5.61 Hgb 16.0 Hct 49.7 MCV 88.6 MCH 28.5 MCHC 32.2 RDW 14.3 Plt Count 209 MPV 9.7 Platelet Estimate Pending RBC Morphology Pending D-Dimer Sodium Potassium Chloride Carbon Dioxide Anion Gap BUN Creatinine GFR Calculation Glucose Hemoglobin A1c 7.6 H Estim Average Glucose 171 Uric Acid Calcium Phosphorus Magnesium Ferritin 1230.0 H Total Bilirubin Direct Bilirubin GGT AST ALT Alkaline Phosphatase Lactate Dehydrogenase C-Reactive Protein Total Protein Albumin Globulin Albumin/Globulin Ratio Triglycerides 10/28/21 10/28/21 05:29 05:29 WBC RBC Hgb Hct MCV MCH MCHC RDW Plt Count MPV Platelet Estimate RBC Morphology D-Dimer 3.24 H Sodium 130 L Potassium 4.6 Chloride 97 Carbon Dioxide 19 L Anion Gap 14.0 BUN 17 Creatinine 0.7 GFR Calculation 105 Glucose 141 H Hemoglobin A1c Estim Average Glucose Uric Acid 5.5 Calcium 8.6 Phosphorus 2.7 Magnesium 2.4 Ferritin Total Bilirubin 0.4 Direct Bilirubin < 0.2 GGT 92 H AST 44 H ALT 35 Alkaline Phosphatase 108 Lactate Dehydrogenase 568 H C-Reactive Protein 0.90 H Total Protein 6.1 Albumin 2.9 L Globulin 3.2 Albumin/Globulin Ratio 0.9 L Triglycerides 258 H Discharge Plan Patient/Caregiver Discharge Instructions Prescriptions: No Action (DME) Accu-Chek Guide Glucose Meter 0RF Adult Low Dose Aspirin 81 mg PO DAILY 0RF Fish Oil 1,000 mg PO DAILY 0RF albuterol 90 mcg inhalation Q4-6HP PRN (Reason: cough and wheezes) 0RF amlodipine 10 mg PO DAILY 0RF cholecalciferol (vitamin D3) 50 mcg PO DAILY 0RF empagliflozin 25 mg PO DAILY 0RF ergocalciferol (vitamin D2) 1,250 mcg PO Q3-4DAYS 0RF Rx Instructions: take twice weekly insulin aspart U-100 30 units subcut BID 0RF insulin glargine 60 units subcut DAILY 0RF lisinopril 40 mg PO DAILY 0RF metoprolol tartrate 100 mg PO BID 0RF nicotine (polacrilex) 4 mg PO Q1-2HP MDD 80 PRN (Reason: Smoking Cessation) 0RF omeprazole 40 mg PO DAILY 0RF pioglitazone 30 mg PO DAILY 0RF rosuvastatin 40 mg PO DAILY 0RF Follow Up Plan Follow up with: No,PCP [Primary Care Provider] - Patient Disposition: Xfer [facility] Prognosis: Critical Overall status at discharge: patient is not back to baseline Discharge Orders: Discharge Order (Routine); Ordered 10/28/21 Ordered By: Dionicio Canales [facility] VTE Deep Vein Thrombosis/Pulmonary Embolism Present on Admission: No
[2021-10-28] MEDS: fentaNYL 100 MCG/2 ML VIAL IV PRN ×2 (17:13→19:00)
[2021-10-28 20:30] LABS: Eosinophils % (Manual) 1 % (0-7); Lymphocytes % 2 % (15-49); Monocytes % (Manual) 1 % (1-12); Platelet Estimate CLUMPED (Normal); RBC Morphology NORMAL (Normal); Segmented Neutrophils % 96 % (38-78)
[2021-10-28] MEDS ORDERED: CHLORHEXIDINE GLUCONATE 1 ML ORAL.SOL SWABMOUTH SCH (21:00)
[2021-10-28] MEDS ORDERED: FAMOTIDINE/PF 20 MG/2 ML VIAL IV SCH (21:00)
[2021-10-29] MEDS ORDERED: INSULIN GLARGINE, HUMAN 1 UNIT/0.01 ML SQ SCH (09:00)
--- NOTE | 2021-10-30 07:07 | EKG ---
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
== END 2021-10-28 19:30 | disposition short-term general hospital (02) | DRG 208 ==
LOC: ED 09:20 → ICU 11:34
PROVIDERS: ADMIT Internal Medicine; ATTEND Internal Medicine